=== PATIENT | female | born 1980 | race Caucasian/White ===

== ENCOUNTER 2016-07-09 | Emergency (ER) | payer MEDICAID | END 2016-07-09 09:05 | disposition home or self-care (01) ==

== ENCOUNTER 2017-04-09 08:24 | Emergency (ER) | payer MEDICAID ==
[2017-04-09 08:39] VITALS: BP 114/72
[2017-04-09] MEDS ORDERED: LIDOCAINE 2%-EPI 1:100000 20 ML MDV SUBQ STA (09:04)
--- NOTE | 2017-04-09 09:10 | ED Physician Documentation ---
PD HPI SKIN - Stated complaint Stated Complaint: ABSCESS - Chief complaint Chief Complaint: Wound - History obtained from History obtained from: Patient - History of Present Illness Timing - onset: How many days ago (4days) Location: Other (left hip) Review of Systems Constitutional: denies: Fever, Chills Cardiac: denies: Chest pain / pressure Respiratory: denies: Dyspnea, Cough, Hemoptysis GI: denies: Abdominal Pain, Nausea, Vomiting, Constipation, Diarrhea : denies: Dysuria, Frequency Skin: reports: Rash (lef thip), Lesions (left hip). denies: Laceration (s) Musculoskeletal: denies: Neck pain, Extremity pain, Joint pain Neurologic: denies: Generalized weakness, Focal weakness, Headache PD PAST MEDICAL HISTORY - Past Medical History Past Medical History: Yes Cardiovascular: None Respiratory: None Neuro: None Psych: Depression, Anxiety - Past Surgical History Past Surgical History: Yes - Present Medications Home Medications: Ambulatory Orders Medication Instructions Recorded Confirmed Buprenorphine HCl/Naloxone HCl 8 mg PO DAILY 02/21/15 07/09/15 [Suboxone 8 mg-2 mg Sl Film] Albuterol Sulfate [Proair Hfa 2 puffs IH QID #1 hfa.aer.ad 07/09/16 Inhaler] Dexamethasone [Decadron] 4 mg PO DAILY #6 tablet 07/09/16 guaiFENesin/CODEINE [Robitussin AC] 10 ml PO Q6H PRN #240 ml 07/09/16 Sulfamethox/Trimeth 800/160 1 each PO BID #14 tablet 04/09/17 [Bactrim Ds 800/160] - Allergies Allergies/Adverse Reactions: Allergies Allergy/AdvReac Type Severity Reaction Status Date / Time hydrocodone AdvReac Nausea Verified 06/19/14 18:34 - Social History Does the pt smoke?: Yes Smoking Status: Current every day smoker Does the pt drink ETOH?: No Does the pt have substance abuse?: Yes Substance Use and Type: Heroin - Immunizations Immunizations are current?: Yes PD ED PE NORMAL - General General: Alert and oriented X 3, No acute distress, Well developed/nourished - HEENT HEENT: Atraumatic, Moist mucous membranes - Cardiac Cardiac: No murmur. No: RRR (Tachucardic to 121) - Respiratory Respiratory: No respiratory distress - Abdomen Abdomen: Normal bowel sounds, Soft, Non tender - Back Back: No CVA TTP - Derm Derm: Other (10 CM area of redness and warmth with a 8 Cm area of induration to the left outter hip + clear drainage) - Extremities Extremities: No deformity, No edema - Neuro Neuro: Alert and oriented X 3 Eye Opening: Spontaneous Motor: Obeys Commands Verbal: Oriented GCS Score: 15 - Psych Psych: Normal mood Results - Vitals Vitals: Vital Signs - 24 hr 04/09/17 08:37 Temperature 37.0 C Heart Rate 121 H Respiratory 20 Rate Blood Pressure 114/72 O2 Saturation 97 Oxygen O2 Source Room air Procedures - Abscess I&D (location) Buttocks left Lateral Preparation: Confirmed with ultrasound, Chlorhexadine, Lidocaine 1% Incision: Incised with scalpel, Purulent drainage, Loculations broken, Packed Other: Pt tolerated well, Dressing applied, Antibiotic prescribed PD MEDICAL DECISION MAKING - ED course Complexity details: considered differential (Abscess, cellulitis, retained FB, sepsis), d/w patient ED course: Pt with left lateral buttock abscess confirmed with ultrasound. No FB noted on exam. I&D performed. Packing placed. Pt instructed to follow up in 48 hours for a packing re-placement. Will send home on bactrim. Departure - Departure Disposition: 01 Home, Self Care Clinical Impression: Abscess Condition: Good Instructions: ED Abscess IandD Follow-Up: return,here in 48 hours for a wound check [Other] Prescriptions: Sulfamethox/Trimeth 800/160 [Bactrim Ds 800/160] 1 each PO BID #14 tablet Comments: Return to your primary care provider in 48 hours for a wound check. Recommend that you stop the drug use. Return sooner if you have worsening symptoms.
[2017-04-09] MEDS ORDERED: LIDOCAINE 2%-EPI 1:100000 20 ML MDV ONE (09:20)
== END 2017-04-09 09:48 | disposition home or self-care (01) ==
LOC: ED 08:24
DX: L02.31 Cutaneous abscess of buttock (principal); F17.200 Nicotine dependence, unspecified, uncomplicated
CPT/HCPCS: 10060; 99283

== ENCOUNTER 2017-04-11 08:47 | Emergency (ER) | payer MEDICAID ==
--- NOTE | 2017-04-11 09:16 | ED Physician Documentation ---
PD HPI SKIN - Stated complaint Stated Complaint: WOUND CHECK - Chief complaint Chief Complaint: Wound - History obtained from History obtained from: Patient (Pt was seen here by me 2 days ago for an abscess on her left lateral hip from where she was injecting herion. I performed an I&D at that time with placement of packing and sent her home on ABX. she reports back to day for a packing change. she reports that the pain has improved. she states that she is taking her ABX. has no new symptoms.) - History of Present Illness Location: Other (left lateral thigh) Review of Systems Constitutional: denies: Fever, Chills GI: denies: Abdominal Pain, Nausea, Vomiting, Diarrhea Skin: reports: Other (Left thigh wound still draining but improved in pain and redness) Musculoskeletal: denies: Joint pain PD PAST MEDICAL HISTORY - Past Medical History Cardiovascular: None Respiratory: None Neuro: None Psych: Depression, Anxiety - Past Surgical History Past Surgical History: Yes - Present Medications Home Medications: Ambulatory Orders Medication Instructions Recorded Confirmed Buprenorphine HCl/Naloxone HCl 16 mg PO DAILY 02/21/15 04/11/17 [Suboxone 8 mg-2 mg Sl Film] Sulfamethox/Trimeth 800/160 1 each PO BID #14 tablet 04/09/17 04/11/17 [Bactrim Ds 800/160] - Allergies Allergies/Adverse Reactions: Allergies Allergy/AdvReac Type Severity Reaction Status Date / Time No Known Drug Allergies Allergy Verified 04/11/17 08:53 - Social History Does the pt smoke?: Yes Smoking Status: Current every day smoker Does the pt drink ETOH?: No Does the pt have substance abuse?: Yes - Immunizations Immunizations are current?: Yes PD ED PE NORMAL - Vitals Vital signs reviewed: Yes - General General: Alert and oriented X 3 - HEENT HEENT: Atraumatic, Moist mucous membranes - Abdomen Abdomen: Soft, Non tender, Non distended - Back Back: No CVA TTP - Derm Derm: Other (wound to the left thigh with bandage and packing in place. Induration improved/resolved from her exam 2 days ago. Redness approx 10 cm around the wound opening. ) - Extremities Extremities: Other (no left hip joint pain ) - Neuro Neuro: Alert and oriented X 3 - Psych Psych: Normal mood, Normal affect Results - Vitals Vitals: Vital Signs - 24 hr 04/11/17 08:52 Temperature 35.6 C L Heart Rate 114 H Respiratory 18 Rate Blood Pressure 132/89 H O2 Saturation 100 Oxygen O2 Source Room air Procedures - General procedure General procedure: left thigh wound old packing removed and approx 20 cm of 1/4 inch packing re- placed and covered with a bandage. PD MEDICAL DECISION MAKING - ED course Complexity details: d/w patient ED course: pt's wound appears to be improving. the induration has greatly improved. still has surrounding cellulitis. Packing replaced. Pt states that she is taking the ABX. she was instructed to return to her primary care provider or the ER in 48 hours to have the wound packing changed again. she was given the packing to bring with her to the next appointment. Departure - Departure Disposition: 01 Home, Self Care Clinical Impression: Abscess Condition: Good Instructions: ED Abscess IandD Follow-Up: Primary,care provider [Other] Comments: The packing needs to be changed again in 48 hours. bring the packing material that you were given to that appointment.
[2017-04-11 09:32] VITALS: BP 123/77
== END 2017-04-11 09:25 | disposition home or self-care (01) ==
LOC: ED 08:47
DX: L02.416 Cutaneous abscess of left lower limb (principal); F17.200 Nicotine dependence, unspecified, uncomplicated
CPT/HCPCS: 99282; 99283

== ENCOUNTER 2017-04-16 13:05 | Emergency (ER) | payer MEDICAID ==
[2017-04-16 13:14] VITALS: BP 131/89
--- NOTE | 2017-04-16 13:19 | ED Physician Documentation ---
PD HPI SKIN - Stated complaint Stated Complaint: BANDAGE CHANGE - Chief complaint Chief Complaint: Wound - History obtained from History obtained from: Patient - History of Present Illness Timing - onset: Other (36-year-old woman with a left hip abscess, here for dressing change. No acute complaints, no fevers. The pain is minimal to absent.) Review of Systems Constitutional: denies: Fever, Chills GI: denies: Abdominal Pain, Nausea, Vomiting PD PAST MEDICAL HISTORY - Past Medical History Past Medical History: Yes Cardiovascular: None Respiratory: None Neuro: None Psych: Depression, Anxiety - Past Surgical History Past Surgical History: Yes - Present Medications Home Medications: Ambulatory Orders Medication Instructions Recorded Confirmed Buprenorphine HCl/Naloxone HCl 16 mg PO DAILY 02/21/15 04/16/17 [Suboxone 8 mg-2 mg Sl Film] Sulfamethox/Trimeth 800/160 1 each PO BID #14 tablet 04/09/17 04/16/17 [Bactrim Ds 800/160] - Allergies Allergies/Adverse Reactions: Allergies Allergy/AdvReac Type Severity Reaction Status Date / Time No Known Drug Allergies Allergy Verified 04/16/17 13:15 - Social History Does the pt smoke?: Yes Smoking Status: Current every day smoker Does the pt drink ETOH?: No Does the pt have substance abuse?: Yes - Immunizations Immunizations are current?: Yes - POLST Patient has POLST: No PD ED PE NORMAL - Vitals Vital signs reviewed: Yes - General General: Alert and oriented X 3, No acute distress - Extremities Extremities: Other (Over the left hip there is a packed abscess, the abscess packing is removed during examination and there is no residual purulent material and the wound gapes somewhat, I do not think it needs repacking.) - Neuro Neuro: Alert and oriented X 3, Normal speech Results - Vitals Vitals: Vital Signs - 24 hr 04/16/17 13:13 Temperature 36.2 C L Heart Rate 113 H Respiratory 18 Rate Blood Pressure 131/89 H O2 Saturation 100 Oxygen O2 Source Room air Departure - Departure Disposition: 01 Home, Self Care Clinical Impression: Abscess Condition: Good Record reviewed to determine appropriate education?: Yes Instructions: ED Abscess IandD Comments: Your blood pressure was elevated today on check into the emergency department. This does not mean that you have hypertension, it is a common phenomenon to come to the emergency department and have elevated blood pressure. I recommend that you see your primary care physician within the week to have it rechecked when you are feeling better.
== END 2017-04-16 13:27 | disposition home or self-care (01) ==
LOC: ED 13:05
DX: Z48.00 Encounter for change or removal of nonsurgical wound dressing (principal); L02.416 Cutaneous abscess of left lower limb; F17.200 Nicotine dependence, unspecified, uncomplicated; R03.0 Elevated blood-pressure reading, without diagnosis of hypertension
CPT/HCPCS: 99282; 99283